=== PATIENT | female | born 1945 | race Caucasian/White ===

== ENCOUNTER → 2021-05-29 | Day surgery (SDC) | payer MEDICARE ==
[2021-05-28 10:49] LABS: BASOPHILS % 0.2 % (0.0-1.0); EOSINOPHILS # (AUTO) 0.1 (0.0-0.4); EOSINOPHILS % 2.3 % (0.0-6.0); HEMATOCRIT 36.9 % (34.2-44.1); LYMPHOCYTES # (AUTO) 1.6 (1.0-3.2); LYMPHOCYTES % 26.7 % (18.0-39.1); MEAN CORPUSCULAR HEMOGLOBIN 29.9 pg (28-32); MEAN CORPUSCULAR HGB CONC 32.5 g/dL (31-35); MONOCYTES # (AUTO) 0.5 (0.2-0.8); MONOCYTES % 8.1 % (4.4-11.3); NEUTROPHILS # (AUTO) 3.8 (2.1-6.9); NEUTROPHILS % 62.4 % (38.7-80.0); PLATELET COUNT 306 x10e3/uL (140-360); RED BLOOD COUNT 4.01 x10e6/uL (3.6-5.1); RED CELL DISTRIBUTION WIDTH 11.8 % (11.7-14.4)
[2021-05-28 11:32] LABS: ANION GAP 9.3 mmol/L (8-16); CALCIUM 10.1 mg/dL (8.4-10.2); CREATININE, SERUM 0.82 mg/dL (0.57-1.11); POTASSIUM 4.3 mmol/L (3.5-5.1)
[~2021-05-29] MED LIST: BUPIVACAINE HCL 0.5% INJ 30 ML VIAL INJ ONE; CENESTIN0.9 MG PO; DEXAMETHASONE SOD PHOS INJ 4 MG/ML SDV ONE; FENTANYL CITRATE/PF 100MCG/2 ML INJ ONE; LEVOTHROID100 MCG PO; LIDOCAINE HCL 2% LOCAL INJ 5 ML SDV VIAL INJ ONE; LIPITOR40 MG PO; NEOSTIGMINE 1 MG/ML 10ML VIAL ONE; ONDANSETRON HCL INJ 2MG/ML 2ML 2 MG/ML VIAL ONE; POVIDONE IODINE 0.05% 0.05 % ML PO ONE; PROPOFOL IV EMULSION 10 MG/ML 20 ML VIAL ONE; SEVOFLURANE INHAL SOLN 250 ML PEN BTL ONE; SODIUM CHLORIDE 0.9% 50ML 50 ML ONE
[2021-05-29 09:40] VITALS: BP 156/69
== END | disposition home or self-care (01) ==
LOC: OR 07:19
PROVIDERS: ATTEND Podiatrist Foot Surgery
DX: M20.41 Other hammer toe(s) (acquired), right foot (principal); M21.271 Flexion deformity, right ankle and toes; G57.61 Lesion of plantar nerve, right lower limb; E78.6 Lipoprotein deficiency; E03.9 Hypothyroidism, unspecified; B19.10 Unspecified viral hepatitis B without hepatic coma; Z01.810 Encounter for preprocedural cardiovascular examination; Z01.812 Encounter for preprocedural laboratory examination; Z01.818 Encounter for other preprocedural examination; Z20.822 Contact with and (suspected) exposure to COVID-19; Z79.899 Other long term (current) drug therapy
CPT/HCPCS: 28285; 28308; 36415; 64704; 71046; 80048; 85025; 93005; C1713; J0690; J1100; J2001; J2405; J2704; J2710; J3010; U0002; 76000